=== PATIENT | male | born 1970 | race Caucasian/White ===

== ENCOUNTER 2024-11-06 15:32 | Emergency (ER) | payer OTHER, SELFPAY ==
--- NOTE | ~2024-11-06 | CT_ITS ---
CLINICAL INDICATION: Perirectal abscess or or COMPARISON: . TECHNIQUE: Multiple contiguous axial images of the abdomen and pelvis were performed following the ad ministration of with 100 mL Omnipaque-350 intravenous contrast The dose-length product (DLP) was 1699.03 mGy-cm. Automated exposure control and iterative reconstruction technique were employed. FINDINGS/OBSERVATIONS: Visualized lower thorax: The bilateral lung bases are clear. The heart is of normal size, without pericardial effusion. Liver: Within segment 2 of the liver is an irregular focus of decreased attenuation measuring 17 x 12 mm. The remainder of the liver otherwise enhances homogeneously and is not enlarged measuring 16 cm in lo ngitudinal dimension Gallbladder and biliary system: A rounded focus of increased attenuation is identified within the gallbladder measuring 41 x 35 mm, l ikely an incompletely calcified stone. No gallbladder wall thickening, pericholecystic fluid or surro unding inflammatory change is identified. Pancreas: The pancreas enhances homogeneously without ductal dilatation. Spleen: The spleen enhances homogeneously and is not enlarged measuring 8 cm in longitudinal dimension. Kidneys: Right-sided pararenal cysts are detected. The remainder of the bilateral kidneys otherwise enhance symmetrically without hydronephrosis or kristian l calculi. Adrenal glands: Unremarkable. Gastrointestinal tract: Mural thickening and edema identified within the cecum, ascending and transverse colon. Short segment mural thickening and edema within the sigmoid colon is also detected. Appendix: The air-filled appendix is of normal caliber (axial series, images 108 through 117). Vasculature: Unremarkable. Lymph nodes: No pathologically enlarged or morphologically suspicious lymph nodes within the retroperitoneum or at the root of the mesentery. Pelvic structures: The bladder is distended, and otherwise unremarkable. The prostate gland is not enlarged. Body wall and musculoskeletal: No perirectal abscess is appreciated on the cross-sectional images. Fixation hardware at the level of L5/S1 IMPRESSION: No perirectal abscess is appreciated on cross-sectional imaging for which direct visualization is rec ommended. Scattered mural thickening and edema within the colon. Irregular focus of decreased attenuation within segment 2 of the liver for which nonemergent follow-u p with MRI examination, with liver mass protocol. Reviewed, dictated and finalized at location A. [employer] IMPRESSION: No perirectal abscess is appreciated on cross-sectional imaging for which direc t visualization is recommended. Scattered mural thickening and edema within the colon. Irregular focus of decreased attenuation within segment 2 of the liver for whic h nonemergent follow-up with MRI examination, with liver mass protocol.
--- OUTSIDE RECORDS SUMMARY | 2024-11-06 15:34 | XMS_ITS | Clinical Summary ---
Author Organization [facility] Address [address] [place] [id number] Care Team Providers Care Tomato Paste Maker Name Role Phone Renaldo Erazo MD Primary Care Provider [phone] Allergies No known active allergies Medications hydrocortisone-p ramoxine (ANALPRAM-HC) 2.5-1 % rectal cream Insert into the rectum 2 (two) times a day 30 g 11/05/2024 Active Active Problems Problem Noted Date Diagnosed Date Calculus of gallbladder with out cholecystitis without obstruction 09/05/2023 Chronic lymphocytic leukemia, Crenshaw stage II 02/04 Resolved Problems Problem Noted Date Diagnosed Date Resolved Date Immunocompromised 08/03/2022 05/14/2024 Encounter for screening colonoscopy 11/10/2020 05/14/2024 Overview (11/10/2020): Added automatically from request for surgery [id number] Encounters Date Type Department Care Team Description 11/05/2024 [facility] [address] [facility] [address] [place] [address] Renaldo Erazo MD Hemorrhoids 09/11/2024 8:15 AM [facility] Lab [facility] - Lab Collection [address] [place] [id number] Chronic lymphocytic leukemia, Crenshaw stage II (HCC) 09/11/2024 8:00 AM P[facility] Office Visit [facility] [address] [place] [address] [address] [place] [address] Kelly Pierce MD Chronic lymphocytic leukemia, Crenshaw stage II (HCC) (Primary Dx); Need for influenza vaccination 09/11/2024 7:00 AM [facility] Lab [facility] [address] [phone] Chronic lymphocytic leukemia, Crenshaw stage II (HCC) from Last 3 Months Immunizations Name Administration Dates Next Due Influenza, Quadrivalent, Becca l Culture-based MDCK, Preservative Free, Antibiotic Free, Intramuscular 08/16/2023,08/10/2021,07/01/2020,07/03 Influenza, Trivalent, Cell Culture-based MDCK, Preservative Free, Antibiotic Free, Intramuscular 09/11/2024 Moderna SARS-CoV-2 Monovalen t Vaccination (12+ YRS) 04/20/2022,10/12/2021,12/25/2020,11/27 Pneumococcal Conjugate PCV 13 04/16/2019 Pneumococcal Polysaccharide PPV23 04/01/2020 Tdap 12/27/2021 ZOSTER Recombinant 07/03/2019,04/16/2019 Surgical History Surgery Date Site/Laterality Comments BACK SURGERY 10/01/2015 BACK SURGERY 10/01/2015 - 09/30/2016 Medical History Medical History Date Comments GERD (gastroesophageal reflux disease) Cancer (CMS/HCC) (HCC) CLL (chronic lymphocytic leukemia) ([facility]) 01/2019 Family History Medical History Relation Name Comments COPD Father Heart disease Mother Hypertension Mother Crohn's disease Sister Relation Name Status Comments Father Mother Alive Sister Alive Social History Tobacco Use Types Packs/Day Years Used Date Smoking Tobacco: Never Passive Smoke Exposure: Never Smokeless Tobacco: Former Chew Quit: 02/04/2015 Tobacco Cessation:Counseling Given: Not Answered Comments:chewing tobacco Alcohol Use Standard Drinks/Week Comments Yes 0 (1 standard drink = 0.6 oz pur e alcohol) AUDIT-C Answer Date Recorded Q1: How often do you have a drink containing alc ohol? 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 Not on file Not on file Obstetrics History Last Filed Vital Signs Vital Sign Reading Time Taken Comments Blood Pressure 125/76 09/11/2024 8:08 AM [facility] Pulse 74 09/11/2024 8:08 AM [facility] Temperature 36.6 C (97.8 F) 09/11/2024 8:08 AM [facility] Respiratory Rate 18 09/11/2024 8:08 AM [facility] Oxygen Saturation 96% 09/11/2024 8:08 AM [facility] Inhaled Oxygen Concentration - - Weight 139.3 kg (307 lb 3.2 oz) 09/11/2024 8:08 AM [facility] Height 188 cm (6' 2 ) 09/03/2023 8:13 AM [facility] Body Mass Index 39.44 09/03/2023 8:13 AM [facility] Plan of Treatment Health Maintenance Due Date Last Done Comments Depression Screening 1970 Hepatitis B Screening 1986 Regular Well Visit/Exam 18-64 02/24/2024, 01/11/2022, 01/11/2022 Covid-19 Vaccine (5 - 2023-2 5 season) 2024 04/20/2022, 10/12/2021, 12/25/2020, Additional history exists Pneumococcal vaccine <65 (3 of 3 - PPSV23 or PCV20) 04/01/2025 04/01/2020, 04/16/2019 Prostate Cancer Screening-PSA 05/17/2025 05/17/2023, 01/11/2022 Colon Cancer Screening-Colonoscopy 12/03/2030 12/03/2020 DTaP/Tdap/Td Vaccine (2 - Td or Tdap) 12/28/2031 12/27/2021 Zoster Vaccine Completed 07/03/2019, 04/16/2019 Colon Cancer Screening-CT Colonography Discontinued 12/03/2020 Colon Cancer Screening-DNA Stool Discontinued 12/04/19 Colon Cancer Screening-FIT Discontinued 12/03/2020 Colon Cancer Screening-Sigmoidoscopy Discontinued 12/03/2020 Hepatitis C Screening Completed 10/05/2022 , 09/07/2022, 08/03/2022, Additional history exists Influenza Vaccine Completed 09/11/2024, , 08/10/2021, Additional history exists Procedures Procedure Name Priority Date/Time Associated Diagnosis Comments EGFR Routine 09/11/2024 8:10 AM [facility] Chronic lymphocytic leukemia, Crenshaw stage II (HCC) DIFFERENTIAL AUTO Routine 09/11/2024 8:1 0 AM [facility] Chronic lymphocytic leukemia, Crenshaw stage II (HCC) CBC WITH AUTO DIFFERENTIAL Routine 09/11/2024 8:10 AM [facility] Chronic lymphocytic leukemia, Crenshaw stage II (HCC) COMPREHENSIVE METABOLIC PANEL Routine 09/11/2024 8:10 AM [facility] Chronic lymphocytic leukemia, Crenshaw stage II (HCC) LACTATE DEHYDROGENASE Routine 09/11/2024 8:10 AM [facility] Chronic lymphocytic leukemia, Crenshaw stage II (HCC) PSA SCREEN Routine 05/17/2023 9:27 AM CDT Routine general medical examination at a [facility] facility HEPATITIS C RNA, QUANTITATIVE, PCR Routine 10/05/2022 8:24 AM [facility] Chronic lymphocytic leukemia, Crenshaw stage II (HCC) COLONOSCOPY 12/03/2020 1:43 PM [facility] from Last 3 Months or Most Recently Relevant to Health Maintenance Results * eGFR (09/11/2024 8:10 AM [facility]) eGFR 89 >=60 mL/min/1. 73 m2 Comment: Interpretive Data Reference Interval Normal >/= 90 mL/min/1.73m2 Mildly decreased* 60 - 89 mL/min/1.73m2 Mildly to moderately decreased 45 - 59 mL/min/1.73m2 Moderately to severely decreased 30 - 44 mL/min/1.73m2 Severely decreased 15 - 29 mL/min/1.73m2 Kidney Failure < 15 mL/min/1.73m2 *Relative to young adult level Estimated glomerular filtration rate is determined by the 2020 CKD-EPI equation recommended by the National Kidney Foundation (A Unifying Approach to GFR Estimation: Recommendations of the NKF-ASK Task Force on Reassessing the Inclusion of Race in Diagnosing Kidney Disease, JASN 2021). The CKD-EPI equation should not be used for patients with unstable renal function and has not been validated in children and those over 70. Current interpretive data was last reviewed 2021. Blood 09/11/2024 8:10 AM [facility] 09/11/2024 8:20 AM P[facility] us Analilia Bahena DIAL PAINTER LAB BLOOD ORDERABLES Final Result [facility] [address] Department [place] [address] * Differential, auto (09/11/2024 8:10 AM [facility]) Neutrophil abs 2.5 1.5 - 6.5 K/cumm Comment:Testing performed by : [facility], [address] [place] [phone] Lymphocyte abs 1.5 0.8 - 3.3 K/cumm CERNER [facility] Comment:Testing performed by : [facility], [address] [place] [phone] Monocyte abs 0.8 0.2 - 0.8 K/cumm CERNER BJ Comment:Testing performed by : [facility], [address] [place] [phone] Eosinophil abs 0.2 0.0 - 0.5 K/cumm CERNER BJ Comment:Testing performed by : [facility], [address] [place] [phone] Basophil abs 0.0 0.0 - 0.1 K/cumm CERNER BJ Comment:Testing performed by : [facility], [address] [place] [phone] Neutrophil pct 48.8 % CERNER BJ Comment: Interpretive Data Percent cell count reference ranges are not reported, since discordance with absolute values may lead to misinterpretation of CBC data. Current Interpretive Data was last revised on 2018. Testing performed by: [facility], [address] [place] [phone] Lymphocyte pct 30.7 % CERNER BJ Comment: Interpretive Data Percent cell count reference ranges are not reported, since discordance with absolute values may lead to misinterpretation of CBC data. Current Interpretive Data was last revised on 2018. Testing performed by: [facility], [address] [place] [phone] Monocyte pct 15.0 % ARABELLA PARTIDA Comment: Interpretive Data Percent cell count reference ranges are not reported, since discordance with absolute values may lead to misinterpretation of CBC data. Current Interpretive Data was last revised on 2018. Testing performed by: [facility], [address] [place] [phone] Eosinophil pct 4.9 % ARABELLA PARTIDA Comment: Interpretive Data Percent cell count reference ranges are not reported, since discordance with absolute values may lead to misinterpretation of CBC data. Current Interpretive Data was last revised on 2018. Testing performed by: [facility], [address] [place] [phone] Basophil pct 0.6 % ARABELLA PARTIDA Comment: Interpretive Data Percent cell count reference ranges are not reported, since discordance with absolute values may lead to misinterpretation of CBC data. Current Interpretive Data was last revised on 2018. Testing performed by: [facility], [address] [place] [phone] Blood 09/11/2024 8:10 AM [facility] 09/11/2024 8:16 AM [facility] Analilia Bahena DIAL PAINTER LAB BLOOD ORDERABLES Final Result ARABELLA PARTIDA [address] Department [place] [address] * CBC with auto differential (09/11/2024 8:10 AM [facility]) WBC 5.0 3.8 - 9.9 K/cumm Comment:Testing performed by : [facility], [address] [place] [phone] Hgb 14.4 13.0 - 17.5 g/dL ARABELLA PARTIDA Comment:Testing performed by : [facility], [address] [place], [place] [phone] Hct 44.4 38.9 - 50.3 % CERNER BJ Comment:Testing performed by : [facility], [address] [place], [place] [phone] Plt 161 150 - 400 K/cumm CERNER BJ Comment:Testing performed by : [facility], [address] [place], [place] [phone] MPV 8.9 6.8 - 10.4 fL CERNER BJ Comment:Testing performed by : [facility], [address] [place], [place] [phone] RBC 4.60 4.30 - 5.80 M/cumm CERNER BJ Comment:Testing performed by : [facility], [address] [place], [place] [phone] MCV 96.4 81.3 - 96.4 fL CERNER BJ Comment:Testing performed by : [facility], [address] [place], [place] [phone] MCH 31.2 27.1 - 33.3 pg CERNER BJ Comment:Testing performed by : [facility], [address] [place], [place] [phone] MCHC 32.4 32.3 - 35.7 g/dL CERNER BJ Comment:Testing performed by : [facility], [address] [place], [place] [phone] RDW CV 14.7 11.1 - 14.9 % CERNER BJ Comment:Testing performed by : [facility], [address] [place], [place] [phone] NRBC abs 0.00 0.00 - 0.01 K/cumm CERNER BJ Comment:Testing performed by : [facility], [address] [place], [place] [phone] Blood 09/11/2024 8:10 AM [facility] 09/11/2024 8:16 AM [facility] us Analilia Bahena DIAL PAINTER LAB BLOOD ORDERABLES Final Result Performing Organization Address City/[facility]/ZIP Co de Phone Number [facility] Cindy [facility] [place] [address] * Lactate dehydrogenase (LD) (09/11/2024 8:10 AM P[facility]) [facility] Lactate dehydrogenase (LDH) 166 100 - 250 Units/L Blood 09/11/2024 8:10 AM [facility] 09/11/2024 8:20 AM [facility] Analiliaalessia Yepez Bahena DIAL PAINTER LAB BLOOD ORDERABLES Final Result Performing Organization Address [facility] de Phone Number [facility] Department [place] [address] * Comprehensive metabolic panel (09/11/2024 8:10 AM P[facility]) [facility] Sodium 141 135 - 145 mmol/L Potassium, pl 4.4 3.3 - 4.9 mmol/L [facility] Chloride 108 97 - 110 mmol/L [facility] CO2 30 22 - 32 mmol/L [facility] Anion gap 3 2 - 15 mmol/L [facility] BUN 15 6 - 25 mg/dL [facility] Creatinine 0.99 0.80 - 1.30 mg/dL [facility] Glucose 106 70 - 199 mg/dL [facility] Comment: Interpretive Data Fasting glucose >/= 126 mg/dl is diagnostic for diabetes. Fasting is defined as no caloric intake for at least 8 hours. Fasting glucose between 100 mg/dl to 125 mg/dl is diagnostic of prediabetes. In a patient with classic symptoms of hyperglycemia or hyperglycemic crisis, a random glucose >/= 200 mg/dl is diagnostic for diabetes. In the absence of unequivocal hyperglycemia, results should be confirmed by repeat testing. The classification and Diagnosis of Diabetes Diabetes Care 202; 46: S19-S40. Current interpretive data was last revised 2022. Calcium 9.2 8.5 - 10.3 mg/dL [facility] Bilirubin, total 0.6 0.1 - 1.2 mg/dL [facility] Protein, pl 6.8 6.5 - 8.5 g/dL [facility] Albumin 4.2 3.5 - 5.0 g/dL [facility] Alk phos 98 40 - 130 Units/L [facility] ALT 25 7 - 55 Units/L [facility] AST 22 10 - 50 Units/L [facility] Blood 09/11/2024 8:10 AM [facility] 09/11/2024 8:20 AM [facility] Analilia Bahena NP LAB BLOOD ORDERABLES Final Result Performing Organization Address [facility] Co de Phone Number [facility] [place] [address] * PSA screen (05/17/2023 9:27 AM CDT) PSA-Total 0.53 <=3.90 ng/mL [facility] Comment: Interpretive Data AGE SEX REFERENCE INTERVAL 0 minutes-150 years Female None 0 minutes-49 years Male None 50-59 years Male 0-3.90 60-69 years Male 0-5.40 70-79 years Male 0-6.20 80-150 years Male 0-6.20 The Amandeep PSA Total assay procedure was used. Results from different manufacturers or methods may not be comparable. Serial testing should be performed using the same method. Current interpretive data last revised 22. Blood 05/17/2023 9:27 AM CDT 05/17/2023 10:11 AM CDT Renaldo Erazo MD LAB BLOOD ORDERABLES Final Re sult Performing Organization Address City/[facility] Co de Phone Number [facility] [place] [address] * Hepatitis C (HCV) RNA PCR, quantitative (10/05/2022 8:24 AM [facility]) HCV RNA result Not Detected [facility] Comment: The quantifiable range of this assay is 15 IU/mL to 100,000,000 IU/mL (1.18 log IU/mL to 8.00 log IU/mL). Testing was performed by the HELEN 6800 HCV Test ([employer] Testing performed at [facility] Current Interpretive Data was last revised on 2021 Blood 10/05/2022 8:24 AM [facility] 10/05/2022 9:15 AM [facility] us Lynda Slade NP LAB MICROBIOLOGY - GENERAL ORDERABLES Final Result ARABELLA [facility] [address] Department [place] [address] * COLONOSCOPY (12/03/2020 1:43 PM [facility]) Anatomical Region Laterality Modality Other Narrative Procedure Note Laura Sam MD - 12/03/2020 1:43 PM CST [facility] Patient Name: Layo Ponce Procedure Date: 12/03/2020 1:43 PM Date of : 1970 Admit Type: Outpatient Age: 50 Gender: Male Attending MD: Laura Sam M.D. Room: [facility] ENDOSCOPY ROOM 8 Note Status: Finalized Procedure: Colonoscopy Indications: Screening for colorectal malignant neoplasm Referring MD: Renaldo Erazo M.D. Providers: Laura Sam M.D. Medicines: Monitored Anesthesia Care Complications: No immediate complications. Estimated Blood Loss: Estimated blood loss was minimal. Procedure: Pre-Anesthesia Assessment: - Immediately prior to administration ofmedications, the patient was re-assessed for adequacy to receive sedatives. - The risks and benefits of the procedure and the sedation options and risks were discussed with the patient. All questions were answered and informed consent was obtained. The benefits, risks and alternatives of theprocedure and sedation were discussed and informed consentwas obtained. All questions were answered. Please referto the signed informed consent document in the medical record. The scope was passed under direct vision.The [id number] endoscope was introduced through the anus and advanced to the terminal ileum. The colonoscopy was performed without difficulty. The patient tolerated the procedure well. The bowel preparation used was GoLYTELY via split dose instruction. Bowel prep was administered using asplit dose. The quality of the bowel preparation was excellent. Findings: A 3 mm polyp was found in the rectum. The polyp was sessile. Thepolyp was removed with a jumbo cold forceps. Resection and retrieval were complete. Internal hemorrhoids were found during retroflexion. Impression: - One 3 mm polyp in the rectum, removed with ajumbo cold forceps. Resected and retrieved. - Internal hemorrhoids. Recommendation: - Await pathology results. - A polyp or polyps were removed during your colonoscopy today. After the pathology result ofthe polyp(s) is reviewed, the doctor who performedyour colonoscopy will recommend follow-up colonoscopy to you based on current guidelines by gastroenterology societies: - If only small hyperplastic polyps from the rectumor sigmoid were removed, repeat the colonoscopy in 10 years. - If 1 or 2 polyps less than 1 cm in size are adenomas, repeat the colonoscopy in 5 years. - If 3 or more polyps are adenomas, repeat the colonoscopy in 3 years. - If there are 10 or more adenomas, repeat the colonoscopy in 1 year. - If any polyp is 10 mm or greater in size, has villous histology or high grade dysplasia,repeat the colonoscopy in 3 years. - If a polyp greater than 2 cm was removed with a piecemeal technique, repeat the colonoscopy in 6 months to be certain that there is no residualpolyp. - Sessile serrated polyps are treated like adenomas for surveillance purposes. Electronically signed by Laura Sam MD Laura Sam M.D. 12/03/2020 2:40:42 PM . Number of Addenda: 0 Note Initiated On: 12/03/2020 1:43 PM Recognized by the [employer] for promoting quality in endoscopy Laura Sam MD ENDOSCOPY PROCEDURE S Final Result from Last 3 Months or Most Recently Relevant to Health Maintenance Insurance [facility] [place] [address] [facility] [employer] CHOICE PLUS CHOICE PLUS [facility] [employer]ENSATION GENERIC [address] [place] [address] Advance Directives For more information, please contact: [phone] * Full Code (Latest Code Status on File) Date Activated Date Inactivated Comments 12/03/2020 1:38 PM 12/03/2020 7:03 PM Care Teams Tomato Paste Maker Relationship Specialty Start Date End Date Renaldo Erazo MD [address] [address] PCP - General Internal Medicine 01/21/19
--- OUTSIDE RECORDS SUMMARY | 2024-11-06 15:34 | XMS_ITS | Patient Health Summary ---
Author Organization [facility] [employer] Address [address] [facility] [place] [address] Care Team Providers Care Bow Repairer Custom Name Role Phone Renaldo Erazo MD Primary Care Provider [phone] Note from [facility],non-owned Affiliates and Associated Physician Practices is amultiple site organization consisting of ambulatory clinics and hospital sitesin [place], [place], [place] and [place]. This disclosure is being madepursuant to the Care Everywhere program and may not contain all information available regarding this patient. Last updated 18.[facility] [employer] Allergies No known active allergies Medications Be aware that medications may not be up to date on this document. Always verify current medications with the patient. No known medications Social History Tobacco Use Types Packs/Day Years Used Date Smoking Tobacco: Never Smokeless Tobacco: Never Sex and Gender Information Value Date Recorded Sex Assigned at Not on file Gender Identity Not on file Sexual Orientation Not on file Last Filed Vital Signs Vital Sign Reading Time Taken Comments Blood Pressure 110/68 03/02/2019 2:34 PM CDT Pulse 92 03/02/2019 2:34 PM CDT Temperature 37.2 C (98.9 F) 03/02/2019 2:34 PM CDT Respiratory Rate 15 03/02/2019 2:34 PM CDT Oxygen Saturation 96% 03/02/2019 2:34 PM CDT Inhaled Oxygen Concentration - - Weight 128.4 kg (283 lb) 03/02/2019 2:34 PM CDT Height 188 cm (6' 2 ) 03/02/2019 2:34 PM CDT Body Mass Index 36.34 03/02/2019 2:34 PM CDT Care Teams Bow Repairer Custom Relationship Specialty Start Date End Date Renaldo Erazo MD PCP - General Internal Medicine 01/19/17
--- OUTSIDE RECORDS SUMMARY | 2024-11-06 15:34 | XMS_ITS ---
Author Organization [facility] Address Unknown Encounters Encounter Performer Performer Role Encounter Diagnoses Location Date Discharge - Discharged to home or self care - Home - Private home/apt. with no home health services [facility] 10/05/2015 06:00 pm EST - 10/06/2015 12:05 pm EST Social History
--- OUTSIDE RECORDS SUMMARY | 2024-11-06 15:34 | XMS_ITS | Referral Summary ---
Author Organization [facility] [employer] Address [address] [place] [address] Care Team Providers Care Industrial Security Analyst Name Role Phone Renaldo Erazo MD Primary Care Provider [phone] [facility] [employer],non-owned Affiliates and Associated Physician Practices is amultiple site organization consisting of ambulatory clinics and hospital sitesin [place], [place], [place] and [place]. This disclosure is being madepursuant to the Care Everywhere program and may not contain all information available regarding this patient. Last updated 18.[facility] [employer] Allergies No known active allergies Medications Be [...] Mass Index 36.34 03/02/2019 2:34 PM CDT Plan of Treatment Not on file Care Teams Industrial Security Analyst Relationship Specialty Start Date End Date Renaldo Erazo MD PCP - General Internal Medicine 01/19/17
--- OUTSIDE RECORDS SUMMARY | 2024-11-06 15:34 | XMS_ITS | Encounter Summary ---
Author Organization [facility] Address [address] [place] [address] Care Team Providers Care Stapling Machine Operator Name Role Phone Renaldo Erazo MD Primary Care Provider [phone] Reason for Visit * Reason Onset Date Comments Hemorrhoids 11/05/2024 Encounter Details Date Type Department Care Team (Late st Contact Info) Description 11/05/2024 [facility] [address] [facility] [address] [place] [id number] Renaldo Erazo MD [address] [facility] [address] [place] [address] Hemorrhoids Social History Tobacco Use Types Packs/Day Years Used Date Smoking Tobacco: Never Passive Smoke Exposure: Never Smokeless Tobacco: Former Chew Quit: 02/04/2015 Comments:chewing tobacco Alcohol Use Standard Drinks/Week Comments [...] on file Legal Sex Male 1:27 AM NURSE EMERGENCY ROOM Gender Identity Not on file Sexual Orientation Not on file 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 E EMERGENCY ROOM * Telephone Encounter - Renaldo Erazo MD - 11/05/2024 10:19 AM CST Analpram tends to be very soothing. ALso using TUCKS flushable wipes can help Ibuprofen can be helpful for inflammation E EMERGENCY ROOM * Telephone Encounter - Marissa Anguiano - 11/05/2024 9:44 AM NURSE EMERGENCY ROOM Pt notified and voiced understanding. Asking what you would recommend for taking for the pain? E EMERGENCY ROOM * Telephone Encounter - Renaldo Erazo MD - 11/05/2024 9:23 AM CST Sure Analpram apply bid #[id number] E EMERGENCY ROOM * Telephone Encounter - Marissa Anguiano - 11/05/2024 9:12 AM NURSE EMERGENCY ROOM Pt calling in c/o problems with hemorrhoids. Pt has had a history of hemorrhoids in the past. Said that this flare up started Sunday morning after having to push with BM. Pt can feel a bump. Very tender. Has bled when having BM but only when wiping. Said it is a mix of bright red and dark red. He is trying preparation H and it isn't helping at all the only thing that is helping is sitting inthe bathtub. He made an appointment for next week as he hasn't been seen since 01/2023. But asking if there is anything that can be done until then. E EMERGENCY ROOM documented in this encounter Plan of Treatment Not on file documented as of this encounter Visit Diagnoses Not on filedocumented in this encounter Care Teams Stapling Machine Operator Relationship Specialty Start Date End Date Renaldo Erazo MD [address] [address] PCP - General Internal Medicine 01/21/19 documented as of this encounter
--- OUTSIDE RECORDS SUMMARY | 2024-11-06 15:34 | XMS_ITS | Clinical Summary ---
Author Organization [facility] [employer] Address [address] [place] [address] Care Team Providers Care Therapeutic Specialist Name Role Phone Renaldo Erazo MD Primary Care Provider [phone] Source Comments [facility] [employer],non-owned Affiliates and Associated Physician Practices is amultiple site organization consisting of ambulatory clinics and hospital sitesin [place], [place], [place] and [place]. This disclosure is being madepursuant to the Care Everywhere program and may not contain all information available regarding this patient. Last updated 18.[facility] [employer] Allergies No known active allergies Medications Be [...] 03/02/2019 2:34 PM CDT Plan of Treatment Health Maintenance Due Date Last Done Comments COLOGUARD (AGES 45-75) - COL ON CA SCREENING 1970 COLON MONITORING 1970 COLONOSCOPY - COLON CA SCREENING 1968 CT COLONOGRAPHY - COLON CA SCREENING 1970 Colorectal Cancer Screening 1970 FIT - COLON CA SCREENING 1968 FLEX SIG - COLON CA SCREENING 1968 LIPID TESTING 1968 HIV SCREENING 1983 HEPATITIS C SCREENING 08/18/1986 DTAP/TDAP/TD VACCINES (1 - Tdap) 1987 HEPATITIS B VACCINE (1 of 3 - 19+ 3-dose series) 1987 PNEUMOCOCCAL VACCINE 50+ (1 of 1 - PCV) 2018 ZOSTER VACCINE (1 of 2) 2018 SCREENING FOR DIABETES 03/02/2019 COVID-19 VACCINE (1 - 2023-2 5 season) 2024 INFLUENZA VACCINE (#1) 2024 DEPRESSION SCREENING 10/01/2024 HIB VACCINE Aged Out No longer eligi ble based on patient's age to complete this topic HPV VACCINE Aged Out No longer eligi ble based on patient's age to complete this topic MENINGOCOCCAL (Group B) VACCINE Aged Out No longer eligible based on patient's age to complete this topic MENINGOCOCCAL VACCINE Aged Out No alondra israel eligible based on patient's age to complete this topic PNEUMOCOCCAL VACCINE Aged Out No long er eligible based on patient's age to complete this topic Care Teams Therapeutic Specialist Relationship Specialty Start Date End Date Renaldo Erazo MD PCP - General Internal Medicine 01/19/17
--- OUTSIDE RECORDS SUMMARY | 2024-11-06 15:34 | XMS_ITS ---
Author Organization [facility] Address [address] [place] [phone] Care Team Providers Care Historiographer Name Role Phone Renaldo Erazo MD Primary Care Provider [phone] Active Problems Problem Noted Date Diagnosed Date Calculus of gallbladder with out cholecystitis without obstruction 09/05/2023 Chronic lymphocytic leukemia, Crenshaw stage II 02/04 Current Oncology Plans No current plan information found. Past Plans Line Care Plan Name Start Date Discontinue Date Treatment Medications Discontinue Reason Plan Provider IV MAINTENANCE THERAPY PLAN 05/11/2022 05/14/2024 No medications scheduled. Change in Level of Care Kelly Pierce MD Oncology Chemotherapy Treatment Plan Name Start Date Discontinue Date Treatment Medications Discontinue Reason Plan Provider Cycles oBINutuzumab / Venetoclax - CLL 2 08/12/2023 oBINutuzumab (GAZYVA) IVPB 1,000 mg in 290 mLoBINutuzumab (GAZYVA) IVPB 100 mg in 100 mLoBINutuzumab (GAZYVA) IVPB 900 mg in 250 mLvenetoclax (VENCLEXTA) 10 mg-50 mg- 100 mg Therapy Complete Lynda Slade NP 13 of 14 cycles started Radiation Treatments * No radiation treatments are documented for this patient in [facility]. Treatments may have been administered in another system. Lifetime Dose Tracking * Chemical Lifetime Dose Automatic Entry Manual Entr y DLP 15,114 mGycm 15,114 mGycm 0 mGycm Resolved Problems Problem Noted Date Diagnosed Date Resolved Date Immunocompromised 08/03/2022 05/14/2024 Encounter for screening colonoscopy 11/10/2020 05/14/2024 Overview (11/10/2020): Added automatically from request for surgery [id number]
--- OUTSIDE RECORDS SUMMARY | 2024-11-06 15:34 | XMS_ITS | Referral Summary ---
Author Organization [facility] Address [address] [place] [phone] Care Team Providers Care Lure Maker Name Role Phone Renaldo Erazo MD Primary Care Provider [phone] Encounters Date Type Department Care Team Description 11/05/2024 [facility] [address] [facility] [address] [place] [address] Renaldo Erazo MD Hemorrhoids 09/11/2024 8:15 AM STUDENT UNION CONSULTANT Lab [facility] [address] [place] [id number] Chronic lymphocytic leukemia, Crenshaw stage II (HCC) 09/11/2024 8:00 AM STUDENT UNION CONSULTANT Office Visit [facility] Oncology [address] [place] [phone] Kelly Pierce MD Chronic lymphocytic leukemia, Crenshaw stage II (HCC) (Primary Dx); Need for influenza vaccination 09/11/2024 7:00 AM STUDENT UNION CONSULTANT Lab [facility] Oncology Lab [address] [place] [phone] Chronic lymphocytic leukemia, Crenshaw stage II (HCC) from Last 3 Months Allergies No known active allergies Medications hydrocortisone-p [...] (11/10/2020): Added automatically from request for surgery [id number] Immunizations Name Administration Dates Next Due Influenza, Quadrivalent, Becca l Culture-based MDCK, Preservative Free, Antibiotic Free, Intramuscular 08/16/2023,08/10/2021,07/01/2020,07/03 Influenza, Trivalent, Cell Culture-based MDCK, Preservative Free, Antibiotic Free, Intramuscular 09/11/2024 Moderna SARS-CoV-2 Monovalen t Vaccination (12+ YRS) 04/20/2022,10/12/2021,12/25/2020,11/27 Pneumococcal Conjugate PCV 13 04/16/2019 Pneumococcal Polysaccharide PPV23 04/01/2020 Tdap 12/27/2021 ZOSTER Recombinant 07/03/2019,04/16/2019 Social History Tobacco Use Types Packs/Day Years [...] on file Legal Sex Male 1:27 AM STUDENT UNION CONSULTANT Gender Identity Not on file Sexual Orientation Not on file 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 Not on file Not on file Last Filed Vital Signs Vital Sign Reading Time Taken Comments Blood Pressure 125/76 09/11/2024 8:08 AM STUDENT UNION CONSULTANT Pulse 74 09/11/2024 8:08 AM STUDENT UNION CONSULTANT Temperature 36.6 C (97.8 F) 09/11/2024 8:08 AM STUDENT UNION CONSULTANT Respiratory Rate 18 09/11/2024 8:08 AM STUDENT UNION CONSULTANT Oxygen Saturation 96% 09/11/2024 8:08 AM STUDENT UNION CONSULTANT Inhaled Oxygen Concentration - - Weight 139.3 kg (307 lb 3.2 oz) 09/11/2024 8:08 AM STUDENT UNION CONSULTANT Height 188 cm (6' 2 ) 09/03/2023 8:13 AM STUDENT UNION CONSULTANT Body Mass Index 39.44 09/03/2023 8:13 AM STUDENT UNION CONSULTANT Plan of Treatment Not on file Procedures Procedure Name Priority Date/Time Associated Diagnosis Comments EGFR Routine 09/11/2024 8:10 AM STUDENT UNION CONSULTANT Chronic lymphocytic leukemia, Crenshaw stage II (HCC) DIFFERENTIAL AUTO Routine 09/11/2024 8:1 0 AM STUDENT UNION CONSULTANT Chronic lymphocytic leukemia, Crenshaw stage II (HCC) CBC WITH AUTO DIFFERENTIAL Routine 09/11/2024 8:10 AM STUDENT UNION CONSULTANT Chronic lymphocytic leukemia, Crenshaw stage II (HCC) COMPREHENSIVE METABOLIC PANEL Routine 09/11/2024 8:10 AM STUDENT UNION CONSULTANT Chronic lymphocytic leukemia, Crenshaw stage II (HCC) LACTATE DEHYDROGENASE Routine 09/11/2024 8:10 AM STUDENT UNION CONSULTANT Chronic lymphocytic leukemia, Crenshaw stage II (HCC) PSA SCREEN Routine 05/17/2023 9:27 AM CDT Routine [facility] at [facility] HEPATITIS C RNA, QUANTITATIVE, PCR Routine 10/05/2022 8:24 AM STUDENT UNION CONSULTANT Chronic lymphocytic leukemia, Crenshaw stage II (HCC) COLONOSCOPY 12/03/2020 1:43 PM STUDENT UNION CONSULTANT from Last 3 Months or Most Recently Relevant to Health Maintenance Results * eGFR (09/11/2024 8:10 AM STUDENT UNION CONSULTANT) eGFR 89 >=60 mL/min/1. 73 m2 Comment: [...] of Race in Diagnosing Kidney Disease, JASN 2020). The CKD-EPI equation should not be used for patients with unstable renal function and has not been validated in children and those over 70. Current interpretive data was last reviewed 2021. Blood 09/11/2024 8:10 AM STUDENT UNION CONSULTANT 09/11/2024 8:20 AM STUDENT UNION CONSULTANT us Analilia Bahena INSTRUCTIONAL MANAGER LAB BLOOD ORDERABLES Final Result [facility] Department [place] [address] * Differential, auto (09/11/2024 8:10 AM STUDENT UNION CONSULTANT) Neutrophil abs 2.5 1.5 - 6.5 K/cumm Comment:Testing performed by : [facility], [address] [place] [phone] Lymphocyte abs 1.5 0.8 - 3.3 K/cumm [facility] Comment:Testing performed by : [facility], [address] [place] [phone] Monocyte abs 0.8 0.2 - 0.8 K/cumm [facility] Comment:Testing performed by : [facility], [address] [place] [phone] Eosinophil abs 0.2 0.0 - 0.5 K/cumm [facility] Comment:Testing performed by : [facility], [address] [place] [phone] Basophil abs 0.0 0.0 - 0.1 K/cumm [facility] Comment:Testing performed by : [facility], [address] [place] [phone] Neutrophil pct 48.8 % [facility] Comment: Interpretive Data Percent cell count reference ranges are not reported, since discordance with absolute values may lead to misinterpretation of CBC data. Current Interpretive Data was last revised on 2018. Testing performed by: [facility], [address] [place] [phone] Lymphocyte pct 30.7 % [facility] Comment: Interpretive Data Percent cell count reference ranges are not reported, since discordance with absolute values may lead to misinterpretation of CBC data. Current Interpretive Data was last revised on 2018. Testing performed by: [facility], [address] [place] [phone] Monocyte pct 15.0 % [facility] Comment: Interpretive Data Percent cell count reference ranges are not reported, since discordance with absolute values may lead to misinterpretation of CBC data. Current Interpretive Data was last revised on 2018. Testing performed by: [facility], [address] [place] [phone] Eosinophil pct 4.9 % [facility] Comment: Interpretive Data Percent cell count reference ranges are not reported, since discordance with absolute values may lead to misinterpretation of CBC data. Current Interpretive Data was last revised on 2018. Testing performed by: [facility], [address] [place] [phone] Basophil pct 0.6 % [facility] Comment: Interpretive Data Percent cell count reference ranges are not reported, since discordance with absolute values may lead to misinterpretation of CBC data. Current Interpretive Data was last revised on 2018. Testing performed by: [facility], [address] [place] [phone] Blood 09/11/2024 8:10 AM STUDENT UNION CONSULTANT 09/11/2024 8:16 AM STUDENT UNION CONSULTANT us Analilia Bahena INSTRUCTIONAL MANAGER LAB BLOOD ORDERABLES Final Result [facility] Department [place] [address] * CBC with auto differential (09/11/2024 8:10 AM STUDENT UNION CONSULTANT) Pathologist [facility] WBC 5.0 3.8 - 9.9 K/cumm Comment:Testing performed by : [facility], [address] [place] [address] Hgb 14.4 13.0 - 17.5 g/dL [facility] Comment:Testing performed by : [facility], [address] [place] [address] Hct 44.4 38.9 - 50.3 % [facility] Comment:Testing performed by : [facility], [address] [place] [address] Plt 161 150 - 400 K/cumm [facility] Comment:Testing performed by : [facility], [address] [place] [address] MPV 8.9 6.8 - 10.4 fL [facility] Comment:Testing performed by : [facility], [address] [place] [address] RBC 4.60 4.30 - 5.80 M/cumm [facility] Comment:Testing performed by : [facility], [address] [place] [address] MCV 96.4 81.3 - 96.4 fL [facility] Comment:Testing performed by : [facility], [address] [place] [address] MCH 31.2 27.1 - 33.3 pg [facility] Comment:Testing performed by : [facility], [address] [place] [address] MCHC 32.4 32.3 - 35.7 g/dL [facility] Comment:Testing performed by : [facility], [address] [place] [address] RDW CV 14.7 11.1 - 14.9 % [facility] Comment:Testing performed by : [facility], [address] [place] [address] NRBC abs 0.00 0.00 - 0.01 K/cumm [facility] Comment:Testing performed by : [facility], [address] [place] [phone] Blood 09/11/2024 8:10 AM STUDENT UNION CONSULTANT 09/11/2024 8:16 AM STUDENT UNION CONSULTANT Analilia Bahena INSTRUCTIONAL MANAGER LAB BLOOD ORDERABLES Final Result Performing Organization Address [facility] Co de Phone Number [facility] Department [place] [employer] [address] * Lactate dehydrogenase (LD) (09/11/2024 8:10 AM STUDENT UNION CONSULTANT) Pathologist [facility] Lactate dehydrogenase (LDH) 166 100 - 250 Units/L Blood 09/11/2024 8:10 AM STUDENT UNION CONSULTANT 09/11/2024 8:20 AM STUDENT UNION CONSULTANT Analilia Bahena INSTRUCTIONAL MANAGER LAB BLOOD ORDERABLES Final Result Performing Organization Address [facility] de Phone Number [facility] [place] [address] * Comprehensive metabolic panel (09/11/2024 8:10 AM STUDENT UNION CONSULTANT) Pathologist [facility] Sodium 141 135 - 145 mmol/L Potassium, pl 4.4 3.3 - 4.9 mmol/L [facility] Chloride 108 97 - 110 mmol/L [facility] CO2 30 22 - 32 mmol/L [facility] Anion gap 3 2 - 15 mmol/L [facility] BUN 15 6 - 25 mg/dL [facility] Creatinine 0.99 0.80 - 1.30 mg/dL [facility] Glucose 106 70 - 199 mg/dL [facility] Comment: Interpretive Data Fasting glucose >/= 126 [...] 2022. Calcium 9.2 8.5 - 10.3 mg/dL [facility] Bilirubin, total 0.6 0.1 - 1.2 mg/dL [facility] Protein, pl 6.8 6.5 - 8.5 g/dL [facility] Albumin 4.2 3.5 - 5.0 g/dL [facility] Alk phos 98 40 - 130 Units/L [facility] ALT 25 7 - 55 Units/L [facility] AST 22 10 - 50 Units/L [facility] Blood 09/11/2024 8:10 AM STUDENT UNION CONSULTANT 09/11/2024 8:20 AM STUDENT UNION CONSULTANT Analilia Bahena NP LAB BLOOD ORDERABLES Final Result Performing Organization Address [facility] Co de Phone Number [facility] Department [place] [address] * PSA screen (05/17/2023 9:27 AM CDT) PSA-Total 0.53 <=3.90 ng/mL [facility] Comment: Interpretive Data AGE SEX REFERENCE INTERVAL [...] 9:27 AM CDT 05/17/2023 10:11 AM CDT us Renaldo Erazo MD LAB BLOOD ORDERABLES Final Re sult Performing Organization Address [facility] Co de Phone Number [facility] [place] [address] * Hepatitis C (HCV) RNA PCR, quantitative (10/05/2022 8:24 AM STUDENT UNION CONSULTANT) [facility] [address] HCV RNA result Not Detected [facility] Comment: The quantifiable range of this assay is 15 IU/mL to 100,000,000 IU/mL (1.18 log IU/mL to 8.00 log IU/mL). Testing was performed by the [employer]00 HCV Test ([employer] Testing performed at [facility] Current Interpretive Data was last revised on 2021 Blood 10/05/2022 8:24 AM STUDENT UNION CONSULTANT 10/05/2022 9:15 AM STUDENT UNION CONSULTANT us Lynda Slade NP LAB MICROBIOLOGY - GENERAL ORDERABLES Final Result [facility] [place] [address] * COLONOSCOPY (12/03/2020 1:43 PM STUDENT UNION CONSULTANT) Anatomical Region Laterality Modality Other Narrative Procedure Note Laura Sam MD - 12/03/2020 1:43 PM CST [facility] Patient Name: Layo Ponce Procedure Date: 12/03/2020 1:43 PM Date of : 1970 Admit Type: Outpatient Age: 50 Gender: Male Attending MD: Laura Sam M.D. Room: [facility] ENDOSCOPY RO[facility] 8 Note Status: Finalized Procedure: [...] The scope was passed under direct vision.The [id number] endoscope was introduced through the anus [...] On: 12/03/2020 1:43 PM Recognized by the [employer] for promoting quality in endoscopy Laura Sam MD ENDOSCOPY PROCEDURE S Final Result from Last 3 Months or Most Recently Relevant to Health Maintenance Insurance [facility] [place] [address] CHOICE PLUS CHOICE PLUS CHOICE PLUS CHOICE PLUS WORKERS COMPENSATION GENERIC [id number] [place] [address] Advance Directives For more information, please contact: [phone] * Full Code (Latest Code Status on File) Date Activated Date Inactivated Comments 12/03/2020 1:38 PM 12/03/2020 7:03 PM Care Teams Lure Maker Relationship Specialty Start Date End Date Renaldo Erazo MD [address] [facility] [address] [place] [address] PCP - General Internal Medicine 01/21/19
[2024-11-06 15:36] VITALS: BP 121/60; PULSE 107; RESP 20; TEMP 36.4; O2SAT 99
[2024-11-06 17:15] VITALS: BP 156/79; PULSE 130; RESP 20; O2SAT 100
[2024-11-06 18:05] LABS: Eosinophils Percent Auto 2.4 % (0-4.4); Hemoglobin 11.7 g/dL (14.0-18.0); Immature Granulocyte Absolute 0.01 K/mm3 (0.00-0.031); Immature Granulocyte Percent A 1.2 % (0-0.5); Immature Platelet Fraction Pct 2.4 % (0.9-11.2); Lymphocytes Absolute Auto 0.67 K/mm3 (0.9-3.2); Lymphocytes Percent Auto 81.7 % (18.3-44.2); Mean Corpuscular HGB Conc 33.4 g/dl (32-36); Mean Corpuscular Hemoglobin 31.6 pg (26-34); Mean Corpuscular Volume 94.6 fl (80-100); Mean Platelet Volume 9.3 fl (7.4-10.4); Monocytes Percent Auto 3.7 % (2.6-8.5); Neutrophils Absolute Auto 0.1 K/mm3 (1.3-6.7); Platelet Count Result 31 k/mm3 (150-375); Red Cell Distribution Width 13.2 % (11.5-14.5)
[2024-11-06 18:10] LABS: Estimated CRCL calculation 98 ml/min; Estimated Glomerular Filt Rate > 60
--- OUTSIDE RECORDS SUMMARY | 2024-11-06 18:19 | XMS_ITS | Referral Summary ---
Author Organization [facility] [employer] Address [address] [place] [address] Care Team Providers Care Film Vault Supervisor Name Role Phone Renaldo Erazo MD Primary Care Provider [phone] Source Comments [facility],non-owned Affiliates and Associated Physician Practices is amultiple site organization consisting of ambulatory clinics and hospital sitesin [place], [place], [place] and [place]. This disclosure is being madepursuant to the Care Everywhere program and may not contain all information available regarding this patient. Last updated 18.[facility] Allergies No known active allergies Medications Be [...] of Treatment Not on file Care Teams Film Vault Supervisor Relationship Specialty Start Date End Date Renaldo Erazo MD PCP - General Internal Medicine 01/19/17
--- OUTSIDE RECORDS SUMMARY | 2024-11-06 18:19 | XMS_ITS | Clinical Summary ---
Author Organization [facility] Address [address] [place] [place] [address] Care Team Providers Care Mailing Machine Assistant Name Role Phone Renaldo Erazo MD Primary Care Provider [phone] Source Comments [facility],non-owned Affiliates and Associated Physician Practices is amultiple site organization consisting of ambulatory clinics and hospital sitesin [place]. This disclosure is being madepursuant to the Care Everywhere program and may not contain all information available regarding this patient. Last updated 18.[facility] Allergies No known active allergies Medications Be [...] age to complete this topic Care Teams Mailing Machine Assistant Relationship Specialty Start Date End Date Renaldo Erazo MD PCP - General Internal Medicine 01/19/17
--- OUTSIDE RECORDS SUMMARY | 2024-11-06 18:19 | XMS_ITS | Clinical Summary ---
Author Organization [facility] Address [address] [place] [id number] Care Team Providers Care Analytical Strategist Name Role Phone Renaldo Erazo MD Primary Care Provider [phone] Allergies No known active allergies Medications hydrocortisone-p [...] (11/10/2020): Added automatically from request for surgery [id number] Encounters Date Type Department Care Team Description 11/05/2024 [facility] [address] [place] [address] Renaldo Erazo MD Hemorrhoids 09/11/2024 8:15 AM OYSTER BUYER Lab [facility] [place] - Lab Collection [address] [place] [id number] Chronic lymphocytic leukemia, Crenshaw stage II (HCC) 09/11/2024 8:00 AM OYSTER BUYER Office Visit [facility] [address] [place] [address] [address] [place] [address] Kelly Pierce MD Chronic lymphocytic leukemia, Crenshaw stage II (HCC) (Primary Dx); Need for influenza vaccination 09/11/2024 7:00 AM OYSTER BUYER Lab [facility] [address] [phone] Chronic lymphocytic leukemia, Crenshaw stage II (HCC) [...] Cancer (CMS/HCC) (HCC) CLL (chronic lymphocytic leukemia) ([facility]) 01/2019 Family History Medical History Relation [...] on file Legal Sex Male 1:27 AM OYSTER BUYER Gender Identity Not on file Sexual Orientation Not on file 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 Not on file Not on file Obstetrics History Last Filed Vital Signs Vital Sign Reading Time Taken Comments Blood Pressure 125/76 09/11/2024 8:08 AM OYSTER BUYER Pulse 74 09/11/2024 8:08 AM OYSTER BUYER Temperature 36.6 C (97.8 F) 09/11/2024 8:08 AM OYSTER BUYER Respiratory Rate 18 09/11/2024 8:08 AM OYSTER BUYER Oxygen Saturation 96% 09/11/2024 8:08 AM OYSTER BUYER Inhaled Oxygen Concentration - - Weight 139.3 kg (307 lb 3.2 oz) 09/11/2024 8:08 AM OYSTER BUYER Height 188 cm (6' 2 ) 09/03/2023 8:13 AM OYSTER BUYER Body Mass Index 39.44 09/03/2023 8:13 AM OYSTER BUYER Plan of Treatment Health Maintenance Due Date [...] Diagnosis Comments EGFR Routine 09/11/2024 8:10 AM OYSTER BUYER Chronic lymphocytic leukemia, Crenshaw stage II (HCC) DIFFERENTIAL AUTO Routine 09/11/2024 8:1 0 AM OYSTER BUYER Chronic lymphocytic leukemia, Crenshaw stage II (HCC) CBC WITH AUTO DIFFERENTIAL Routine 09/11/2024 8:10 AM OYSTER BUYER Chronic lymphocytic leukemia, Crenshaw stage II (HCC) COMPREHENSIVE METABOLIC PANEL Routine 09/11/2024 8:10 AM OYSTER BUYER Chronic lymphocytic leukemia, Crenshaw stage II (HCC) LACTATE DEHYDROGENASE Routine 09/11/2024 8:10 AM OYSTER BUYER Chronic lymphocytic leukemia, Crenshaw stage II (HCC) PSA SCREEN Routine 05/17/2023 9:27 AM CDT Routine general medical examination at a [facility] facility HEPATITIS C RNA, QUANTITATIVE, PCR Routine 10/05/2022 8:24 AM OYSTER BUYER Chronic lymphocytic leukemia, Crenshaw stage II (HCC) COLONOSCOPY 12/03/2020 1:43 PM OYSTER BUYER from Last 3 Months or Most Recently Relevant to Health Maintenance Results * eGFR (09/11/2024 8:10 AM OYSTER BUYER) eGFR 89 >=60 mL/min/1. 73 m2 Comment: [...] last reviewed 2021. Blood 09/11/2024 8:10 AM OYSTER BUYER 09/11/2024 8:20 AM OYSTER BUYER us Analilia Bahena ANIMAL ATTENDANT LAB BLOOD ORDERABLES Final Result [facility] [place] [address] * Differential, auto (09/11/2024 8:10 AM OYSTER BUYER) Neutrophil abs 2.5 1.5 - 6.5 K/cumm Comment:Testing performed by : [facility], [address] [place] [phone] Lymphocyte abs 1.5 0.8 - 3.3 K/cumm CERNER [facility] Comment:Testing performed by : [facility], [address] [place] [phone] Monocyte abs 0.8 0.2 - 0.8 K/cumm CERNER BJ Comment:Testing performed by : [facility], [address] [place] [phone] Eosinophil abs 0.2 0.0 - 0.5 K/cumm CERNER BJ Comment:Testing performed by : [facility], [address] [place] [phone] Basophil abs 0.0 0.0 - 0.1 K/cumm CERNER BJ Comment:Testing performed by : [facility], [address] [place] [phone] Neutrophil pct 48.8 % CERNER BJ Comment: Interpretive Data Percent cell count reference ranges are not reported, since discordance with absolute values may lead to misinterpretation of CBC data. Current Interpretive Data was last revised on 2018. Testing performed by: [facility], [address] [place] [phone] Lymphocyte pct 30.7 % CERNER [facility]J Comment: Interpretive Data Percent cell count reference ranges are not reported, since discordance with absolute values may lead to misinterpretation of CBC data. Current Interpretive Data was last revised on 2018. Testing performed by: [facility], [address] [place] [phone] Monocyte pct 15.0 % ARABELLA PARTIDA Comment: Interpretive Data Percent cell count reference ranges are not reported, since discordance with absolute values may lead to misinterpretation of CBC data. Current Interpretive Data was last revised on 2018. Testing performed by: [facility], [address] [place] [phone] Eosinophil pct 4.9 % ARABELLA PARTIDA Comment: Interpretive Data Percent cell count reference ranges are not reported, since discordance with absolute values may lead to misinterpretation of CBC data. Current Interpretive Data was last revised on 2018. Testing performed by: [facility], [address] [place] [phone] Basophil pct 0.6 % ARABELLA PARTIDA Comment: Interpretive Data Percent cell count reference ranges are not reported, since discordance with absolute values may lead to misinterpretation of CBC data. Current Interpretive Data was last revised on 2018. Testing performed by: [facility], [address] [place] [phone] Blood 09/11/2024 8:10 AM OYSTER BUYER 09/11/2024 8:16 AM OYSTER BUYER Analilia Bahena ANIMAL ATTENDANT LAB BLOOD ORDERABLES Final Result [facility] PARTIDA [facility] Department [place] [address] * CBC with auto differential (09/11/2024 8:10 AM OYSTER BUYER) WBC 5.0 3.8 - 9.9 K/cumm Comment:Testing performed by : [facility], [address] [place] [phone] Hgb 14.4 13.0 - 17.5 g/dL ARABELLA PARTIDA Comment:Testing performed by : [facility], [address] [place], [place] [phone] Hct 44.4 38.9 - 50.3 % CERNER BJ Comment:Testing performed by : [facility], [address] [place], [place] [phone] Plt 161 150 - 400 K/cumm CERNER BJ Comment:Testing performed by : [facility], [address] [place], [place] [phone] MPV 8.9 6.8 - 10.4 fL CERNER BJ Comment:Testing performed by : [facility], [address] [place], [place] [phone] RBC 4.60 4.30 - 5.80 M/cumm CERNER BJ Comment:Testing performed by : [facility], [address] [place], [place] [phone] MCV 96.4 81.3 - 96.4 fL CERNER BJ Comment:Testing performed by : [facility], [address] [place], [place] [phone] MCH 31.2 27.1 - 33.3 pg CERNER BJ Comment:Testing performed by : [facility], [address] [place], [place] [phone] MCHC 32.4 32.3 - 35.7 g/dL CERNER BJ Comment:Testing performed by : [facility], [address] [place], [place] [phone] RDW CV 14.7 11.1 - 14.9 % CERNER BJ Comment:Testing performed by : [facility], [address] [place], [place] [phone] NRBC abs 0.00 0.00 - 0.01 K/cumm CERNER BJ Comment:Testing performed by : [facility], [address] [place], [place] [phone] Blood 09/11/2024 8:10 AM OYSTER BUYER 09/11/2024 8:16 AM OYSTER BUYER us Analilia Bahena ANIMAL ATTENDANT LAB BLOOD ORDERABLES Final Result Performing Organization Address City/[facility]/ZIP Co de Phone Number [facility] Cindy [facility] [place] [address] * Lactate dehydrogenase (LD) (09/11/2024 8:10 AM OYSTER BUYER) [facility] Lactate dehydrogenase (LDH) 166 100 - 250 Units/L Blood 09/11/2024 8:10 AM OYSTER BUYER 09/11/2024 8:20 AM OYSTER BUYER Analiliaalessia Yepez Bahena ANIMAL ATTENDANT LAB BLOOD ORDERABLES Final Result Performing Organization Address [facility]/RUST de Phone Number [facility] Department [place] [address] * Comprehensive metabolic panel (09/11/2024 8:10 AM OYSTER BUYER) [facility] Sodium 141 135 - 145 mmol/L Potassium, pl 4.4 3.3 - 4.9 mmol/L [facility] Chloride 108 97 - 110 mmol/L [facility] CO2 30 22 - 32 mmol/L [facility] Anion gap 3 2 - 15 mmol/L [facility] BUN 15 6 - 25 mg/dL [facility] Creatinine 0.99 0.80 - 1.30 mg/dL [facility] Glucose 106 70 - 199 mg/dL [facility] Comment: Interpretive Data Fasting glucose >/= 126 [...] 2022. Calcium 9.2 8.5 - 10.3 mg/dL [facility] Bilirubin, total 0.6 0.1 - 1.2 mg/dL [facility] Protein, pl 6.8 6.5 - 8.5 g/dL [facility] Albumin 4.2 3.5 - 5.0 g/dL [facility] Alk phos 98 40 - 130 Units/L [facility] ALT 25 7 - 55 Units/L [facility] AST 22 10 - 50 Units/L [facility] Blood 09/11/2024 8:10 AM OYSTER BUYER 09/11/2024 8:20 AM OYSTER BUYER Analilia Bahena NP LAB BLOOD ORDERABLES Final Result Performing Organization Address [facility] Co de Phone Number [facility] [place] [place] [address] * PSA screen (05/17/2023 9:27 AM CDT) PSA-Total 0.53 <=3.90 ng/mL [facility] Comment: Interpretive Data AGE SEX REFERENCE INTERVAL [...] ORDERABLES Final Re sult Performing Organization Address City/[facility] Co de Phone Number [facility] [place] [place] [address] * Hepatitis C (HCV) RNA PCR, quantitative (10/05/2022 8:24 AM OYSTER BUYER) HCV RNA result Not Detected [facility] Comment: The quantifiable range of this assay is 15 IU/mL to 100,000,000 IU/mL (1.18 log IU/mL to 8.00 log IU/mL). Testing was performed by the [facility] 6800 HCV Test ([employer] Testing performed at [facility] Current Interpretive Data was last revised on 2021 Blood 10/05/2022 8:24 AM OYSTER BUYER 10/05/2022 9:15 AM OYSTER BUYER us Lynda Slade NP LAB MICROBIOLOGY - GENERAL ORDERABLES Final Result [facility] Department [place] [address] * COLONOSCOPY (12/03/2020 1:43 PM OYSTER BUYER) Anatomical Region Laterality Modality Other Narrative Procedure Note Laura Sam MD - 12/03/2020 1:43 PM C[facility] Patient Name: Layo Ponce Procedure Date: 12/03/2020 1:43 PM Date of : 1970 Admit Type: Outpatient Age: 50 Gender: Male Attending MD: Laura Sam M.D. Room: [facility] ENDOSCOPY ROOM 8 Note Status: Finalized [...] The scope was passed under direct vision.The [id number] endoscope was introduced through the anus [...] On: 12/03/2020 1:43 PM Recognized by the [employer] for promoting quality in endoscopy Laura Sam MD ENDOSCOPY PROCEDURE S Final Result from Last 3 Months or Most Recently Relevant to Health Maintenance Insurance [facility] HMO/PPO Address: [facility] [address] [place] [address] [facility] H[facility]/PPO Address: [address] [place] [id number] [facility] HMO/PPO Address: [address] [place] [address] [facility] HMO/PPO Address: [address] [place] [address] [facility] CHO[facility] HMO/PPO Address: [place] [address] [employer] [address] [place] [address] Advance Directives For more information, please contact: [phone] * Full Code (Latest Code Status on File) Date Activated Date Inactivated Comments 12/03/2020 1:38 PM 12/03/2020 7:03 PM Care Teams Analytical Strategist Relationship Specialty Start Date End Date Renaldo Erazo MD [address] [address] PCP - General Internal Medicine 01/21/19
--- OUTSIDE RECORDS SUMMARY | 2024-11-06 18:19 | XMS_ITS | Referral Summary ---
Author Organization [facility] Address [address] [place] [phone] Care Team Providers Care Truck Spotter Name Role Phone Renaldo Erazo MD Primary Care Provider Encounters Date Type Department Care Team Description 11/05/2024 [facility] [address] [facility] [address] [place] [address] Renaldo Erazo MD Hemorrhoids 09/11/2024 8:15 AM MEDICAL TRANSCRIPTION EDITOR Lab [facility] - Lab Collection [address] [place] [id number] Chronic lymphocytic leukemia, Crenshaw stage II (HCC) 09/11/2024 8:00 AM MEDICAL TRANSCRIPTION EDITOR Office Visit [facility] On[facility] [address] [place] [phone] Kelly Pierce MD Chronic lymphocytic leukemia, Crenshaw stage II (HCC) (Primary Dx); Need for influenza vaccination 09/11/2024 7:00 AM MEDICAL TRANSCRIPTION EDITOR Lab [facility] Oncology Lab [address] [place] [phone] Chronic lymphocytic leukemia, Crenshaw stage II (HCC) [...] (11/10/2020): Added automatically from request for surgery [id number] Immunizations Name Administration Dates Next Due Influenza, [...] on file Legal Sex Male 1:27 AM MEDICAL TRANSCRIPTION EDITOR Gender Identity Not on file Sexual Orientation Not on file 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 Not on file Last Filed Vital Signs Vital Sign Reading Time Taken Comments Blood Pressure 125/76 09/11/2024 8:08 AM MEDICAL TRANSCRIPTION EDITOR Pulse 74 09/11/2024 8:08 AM MEDICAL TRANSCRIPTION EDITOR Temperature 36.6 C (97.8 F) 09/11/2024 8:08 AM MEDICAL TRANSCRIPTION EDITOR Respiratory Rate 18 09/11/2024 8:08 AM MEDICAL TRANSCRIPTION EDITOR Oxygen Saturation 96% 09/11/2024 8:08 AM MEDICAL TRANSCRIPTION EDITOR Inhaled Oxygen Concentration - - Weight 139.3 kg (307 lb 3.2 oz) 09/11/2024 8:08 AM MEDICAL TRANSCRIPTION EDITOR Height 188 cm (6' 2 ) 09/03/2023 8:13 AM MEDICAL TRANSCRIPTION EDITOR Body Mass Index 39.44 09/03/2023 8:13 AM MEDICAL TRANSCRIPTION EDITOR Plan of Treatment Not on file Procedures Procedure Name Priority Date/Time Associated Diagnosis Comments EGFR Routine 09/11/2024 8:10 AM MEDICAL TRANSCRIPTION EDITOR Chronic lymphocytic leukemia, Crenshaw stage II (HCC) DIFFERENTIAL AUTO Routine 09/11/2024 8:1 0 AM MEDICAL TRANSCRIPTION EDITOR Chronic lymphocytic leukemia, Crenshaw stage II (HCC) CBC WITH AUTO DIFFERENTIAL Routine 09/11/2024 8:10 AM MEDICAL TRANSCRIPTION EDITOR Chronic lymphocytic leukemia, Crenshaw stage II (HCC) COMPREHENSIVE METABOLIC PANEL Routine 09/11/2024 8:10 AM MEDICAL TRANSCRIPTION EDITOR Chronic lymphocytic leukemia, Crenshaw stage II (HCC) LACTATE DEHYDROGENASE Routine 09/11/2024 8:10 AM MEDICAL TRANSCRIPTION EDITOR Chronic lymphocytic leukemia, Crenshaw stage II (HCC) PSA SCREEN Routine 05/17/2023 9:27 AM CDT Routine general medical examination at a [facility] HEPATITIS C RNA, QUANTITATIVE, PCR Routine 10/05/2022 8:24 AM MEDICAL TRANSCRIPTION EDITOR Chronic lymphocytic leukemia, Crenshaw stage II (HCC) COLONOSCOPY 12/03/2020 1:43 PM MEDICAL TRANSCRIPTION EDITOR from Last 3 Months or Most Recently Relevant to Health Maintenance Results * eGFR (09/11/2024 8:10 AM MEDICAL TRANSCRIPTION EDITOR) eGFR 89 >=60 mL/min/1. 73 m2 Comment: [...] last reviewed 2021. Blood 09/11/2024 8:10 AM MEDICAL TRANSCRIPTION EDITOR 09/11/2024 8:20 AM MEDICAL TRANSCRIPTION EDITOR us Analilia aBhena SENIOR LOAN PROCESSOR LAB BLOOD ORDERABLES Final Result [facility] [place] [address] * Differential, auto (09/11/2024 8:10 AM MEDICAL TRANSCRIPTION EDITOR) Neutrophil abs 2.5 1.5 - 6.5 K/cumm Comment:Testing performed by : [facility], [address] [place] [phone] Lymphocyte abs 1.5 0.8 - 3.3 K/cumm [facility] Comment:Testing performed by : [facility], [address] [place] [phone] Monocyte abs 0.8 0.2 - 0.8 K/cumm [facility] Comment:Testing performed by : [facility], [address] [place] [phone] Eosinophil abs 0.2 0.0 - 0.5 K/cumm [facility] Comment:Testing performed by : [facility], [address] [place] [phone] Basophil abs 0.0 0.0 - 0.1 K/cumm [facility] Comment:Testing performed by : [facility], [address] [place] [phone] Neutrophil pct 48.8 % [facility] Comment: Interpretive Data Percent cell count reference ranges are not reported, since discordance with absolute values may lead to misinterpretation of CBC data. Current Interpretive Data was last revised on 2018. Testing performed by: [facility], [address] [place] [phone] Lymphocyte pct 30.7 % [facility] Comment: Interpretive Data Percent cell count reference ranges are not reported, since discordance with absolute values may lead to misinterpretation of CBC data. Current Interpretive Data was last revised on 2018. Testing performed by: [facility], [address] [place] [phone] Monocyte pct 15.0 % [facility] Comment: Interpretive Data Percent cell count reference ranges are not reported, since discordance with absolute values may lead to misinterpretation of CBC data. Current Interpretive Data was last revised on 2018. Testing performed by: [facility], [address] [place] [phone] Eosinophil pct 4.9 % [facility] Comment: Interpretive Data Percent cell count reference ranges are not reported, since discordance with absolute values may lead to misinterpretation of CBC data. Current Interpretive Data was last revised on 2018. Testing performed by: [facility], [address] [place] [phone] Basophil pct 0.6 % [facility] Comment: Interpretive Data Percent cell count reference ranges are not reported, since discordance with absolute values may lead to misinterpretation of CBC data. Current Interpretive Data was last revised on 2018. Testing performed by: [facility], [address] [place] [phone] Blood 09/11/2024 8:10 AM MEDICAL TRANSCRIPTION EDITOR 09/11/2024 8:16 AM MEDICAL TRANSCRIPTION EDITOR us Analilia Bahena SENIOR LOAN PROCESSOR LAB BLOOD ORDERABLES Final Result [facility] [place] [address] * CBC with auto differential (09/11/2024 8:10 AM MEDICAL TRANSCRIPTION EDITOR) Pathologist [facility] WBC 5.0 3.8 - 9.9 K/cumm Comment:Testing performed by : [facility], [address] [place] [address] Hgb 14.4 13.0 - 17.5 g/dL CERNER [facility] Comment:Testing performed by : [facility], [address] [place] [address] Hct 44.4 38.9 - 50.3 % [facility]ER [facility]J Comment:Testing performed by : [facility], [address] [place] [address] Plt 161 150 - 400 K/cumm [facility]ER [facility]J Comment:Testing performed by : [facility], [address] [place] [address] MPV 8.9 6.8 - 10.4 fL CERNER BJ Comment:Testing performed by : [facility], [address] [place] [address] RBC 4.60 4.30 - 5.80 M/cumm C[facility]ER [facility]J Comment:Testing performed by : [facility], [address] [place] [address] MCV 96.4 81.3 - 96.4 fL [facility]ER [facility]J Comment:Testing performed by : [facility], [address] [place] [address] MCH 31.2 27.1 - 33.3 pg [facility]ER BJ Comment:Testing performed by : [facility], [address] [place] [address] MCHC 32.4 32.3 - 35.7 g/dL [facility]ER [facility]J Comment:Testing performed by : [facility], [address] [place] [address] RDW CV 14.7 11.1 - 14.9 % CERNER BJ Comment:Testing performed by : [facility], [address] [place] [address] NRBC abs 0.00 0.00 - 0.01 K/cumm [facility] Comment:Testing performed by : [facility], [address] [place] [phone] Blood 09/11/2024 8:10 AM MEDICAL TRANSCRIPTION EDITOR 09/11/2024 8:16 AM MEDICAL TRANSCRIPTION EDITOR Analilia Bahena SENIOR LOAN PROCESSOR LAB BLOOD ORDERABLES Final Result Performing Organization Address [facility] Co de Phone Number [facility] [place] [address] * Lactate dehydrogenase (LD) (09/11/2024 8:10 AM MEDICAL TRANSCRIPTION EDITOR) Pathologist [facility] Lactate dehydrogenase (LDH) 166 100 - 250 Units/L Blood 09/11/2024 8:10 AM MEDICAL TRANSCRIPTION EDITOR 09/11/2024 8:20 AM MEDICAL TRANSCRIPTION EDITOR Analilia Bahena SENIOR LOAN PROCESSOR LAB BLOOD ORDERABLES Final Result Performing Organization Address [facility] de Phone Number [facility] [place] [address] * Comprehensive metabolic panel (09/11/2024 8:10 AM MEDICAL TRANSCRIPTION EDITOR) Pathologist [facility] Sodium 141 135 - 145 mmol/L Potassium, [...] [facility] Blood 09/11/2024 8:10 AM MEDICAL TRANSCRIPTION EDITOR 09/11/2024 8:20 AM MEDICAL TRANSCRIPTION EDITOR Analilia Bahena NP LAB BLOOD ORDERABLES Final Result Performing Organization Address [facility] Co de Phone Number [facility] [place] [address] * PSA screen (05/17/2023 9:27 AM CDT) [...] ORDERABLES Final Re sult Performing Organization Address [facility] Co de Phone Number CERNER [facility] [place] [address] * Hepatitis C (HCV) RNA PCR, quantitative (10/05/2022 8:24 AM MEDICAL TRANSCRIPTION EDITOR) [facility] HCV RNA result Not Detected [facility] Comment: The quantifiable range of this assay is 15 IU/mL to 100,000,000 IU/mL (1.18 log IU/mL to 8.00 log IU/mL). Testing was performed by the HELEN 6800 HCV Test ([employer] Testing performed at [facility] Current Interpretive Data was last revised on 2021 Blood 10/05/2022 8:24 AM MEDICAL TRANSCRIPTION EDITOR 10/05/2022 9:15 AM MEDICAL TRANSCRIPTION EDITOR us Lynda Slade NP LAB MICROBIOLOGY - GENERAL ORDERABLES Final Result [facility] [place] [address] * COLONOSCOPY (12/03/2020 1:43 PM MEDICAL TRANSCRIPTION EDITOR) Anatomical Region Laterality Modality Other Narrative Procedure Note Laura Sam MD - 12/03/2020 1:43 PM CST [facility] Patient Name: Layo Ponce Procedure Date: 12/03/2020 1:43 PM Date of : 1970 Admit Type: Outpatient Age: 50 Gender: Male Attending MD: Laura Sam M.D. Room: [facility] ENDOSCOPY ROOM 8 Note Status: Finalized Procedure: [...] The scope was passed under direct vision.The [id number] endoscope was introduced through the anus [...] On: 12/03/2020 1:43 PM Recognized by the [employer] for promoting quality in endoscopy Laura Sam MD ENDOSCOPY PROCEDURE S Final Result from Last 3 Months or Most Recently Relevant to Health Maintenance Insurance [facility] CHOICE PLUS [facility] HMO/PPO Address: [address] [address] [place] [address] CHOICE PLUS [facility] HMO/PPO Address: [place] [address] CHOICE PLUS [facility]/PPO Address: [place] [address] CHOICE PLUS [facility] HMO/PPO Address: [address] [place] [address] CHOICE PLUS [facility] HMO/PPO Address: [address] [place] [address] WORKERS COMPENSATION GENERIC [address] [place] [address] Advance Directives For more information, please contact: [phone] * Full Code (Latest Code Status on File) Date Activated Date Inactivated Comments 12/03/2020 1:38 PM 12/03/2020 7:03 PM Care Teams Truck Spotter Relationship Specialty Start Date End Date Renaldo Erazo MD [address] [facility] [address] [place] [address] PCP - General Internal Medicine 01/21/19
--- OUTSIDE RECORDS SUMMARY | 2024-11-06 18:19 | XMS_ITS | Encounter Summary ---
Author Organization [facility] Address [address] [place] [address] Care Team Providers Care 3Rd Pressman Name Role Phone Renaldo Erazo MD Primary Care Provider [phone] Reason for Visit * Reason Onset Date Comments Hemorrhoids 11/05/2024 Encounter Details Date Type Department Care Team (Late st Contact Info) Description 11/05/2024 [facility] [address] [facility] [address] [place] [id number] Renaldo Erazo MD [address] [facility] [address] [place] [address] Hemorrhoids Social History Tobacco Use [...] on file Legal Sex Male 1:27 AM COSMETOLOGY EDUCATOR Gender Identity Not on file Sexual Orientation Not on file 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 ETOLOGY EDUCATOR * Telephone Encounter - Renaldo Erazo MD - 11/05/2024 10:19 AM CST Analpram tends to be very soothing. ALso using TUCKS flushable wipes can help Ibuprofen can be helpful for inflammation ETOLOGY EDUCATOR * Telephone Encounter - Marissa Anguiano - 11/05/2024 9:44 AM COSMETOLOGY EDUCATOR Pt notified and voiced understanding. Asking what you would recommend for taking for the pain? ETOLOGY EDUCATOR * Telephone Encounter - Renaldo Erazo MD - 11/05/2024 9:23 AM CST Sure Analpram apply bid #[id number] ETOLOGY EDUCATOR * Telephone Encounter - Marissa Anguiano - 11/05/2024 9:12 AM COSMETOLOGY EDUCATOR Pt calling in c/o problems with hemorrhoids. [...] anything that can be done until then. ETOLOGY EDUCATOR documented in this encounter Plan of Treatment Not on file documented as of this encounter Visit Diagnoses Not on filedocumented in this encounter Care Teams 3Rd Pressman Relationship Specialty Start Date End Date Renaldo Erazo MD [address] [address] PCP - General Internal Medicine 01/21/19 documented as of this encounter
--- OUTSIDE RECORDS SUMMARY | 2024-11-06 18:19 | XMS_ITS ---
Author Organization [facility] Address [address] [place] [phone] Care Team Providers Care Eligibility Analyst Name Role Phone Renaldo Erazo MD Primary Care Provider [phone] Active Problems Problem Noted Date Diagnosed Date [...] treatments are documented for this patient in [facility]. Treatments may have been administered in another system. Lifetime Dose Tracking * Chemical Lifetime Dose Automatic Entry Manual Entr y DLP 15,114 mGycm 15,114 mGycm 0 mGycm Resolved Problems Problem Noted Date Diagnosed Date Resolved Date Immunocompromised 08/03/2022 05/14/2024 Encounter for screening colonoscopy 11/10/2020 05/14/2024 Overview (11/10/2020): Added automatically from request for surgery [id number]
--- OUTSIDE RECORDS SUMMARY | 2024-11-06 18:19 | XMS_ITS | Patient Health Summary ---
Author Organization [facility] [employer] Address [address] [place] [address] Care Team Providers Care Technical Developer Name Role Phone Renaldo Erazo MD Primary Care Provider [phone] Note from [facility],non-owned Affiliates and Associated Physician Practices is amultiple site organization consisting of ambulatory clinics and hospital sitesin [place], [place], [place] and [place]. This disclosure is being madepursuant to the Care Everywhere program and may not contain all information available regarding this patient. Last updated 18.[facility] [employer] Allergies No known active allergies Medications Be [...] 36.34 03/02/2019 2:34 PM CDT Care Teams Technical Developer Relationship Specialty Start Date End Date Renaldo Erazo MD PCP - General Internal Medicine 01/19/17
[2024-11-06 18:22] LABS: Alanine Aminotransferase 23 U/L (6-50); Albumin Level 4.2 g/dL (3.5-5.1); Alkaline Phosphatase 112 U/L (38-126); Anion Gap 11 mmol/L (4-12); Aspartate Amino Transferase 20 U/L (17-59); Bilirubin,Total 1.6 mg/dL (0.2-1.3); Blood Urea Nitrogen 18 mg/dL (9-20); CRP 5.2 mg/dL (<1.0); Calcium 9.1 mg/dL (8.4-10.2); Carbon Dioxide 23 mmol/L (22-30); Chloride 105 mmol/L (98-107); Estimated CRCL calculation 127 ml/min; Estimated Glomerular Filt Rate > 60; Glucose 103 mg/dL (65-110); Sodium 139 mmol/L (137-145)
[2024-11-06 18:24] LABS: White Blood Count 0.8 K/mm3 (4.5-10.0)
[2024-11-06] MEDS: SODIUM CHLORIDE 0.9% IV 1,000 ML 999 ML IV CONT (18:31)
[2024-11-06] MEDS: HYDROmorphone HCL INJ (*CRX) 1 MG/ML SYR 0.5 MG IV PUSH ×2 (18:32→20:44)
[2024-11-06 18:34] VITALS: BP 143/80; PULSE 91; RESP 18; O2SAT 100
--- NOTE | 2024-11-06 18:50 | ED_ITS ---
HPI - Skin/Abscess/Foreign Bdy General Chief complaint: Skin/Abscess/Foreign Body Stated complaint: rectal pain, hemorrhoids Time Seen by Provider: 11/06/24 17:58 Source: patient Mode of arrival: ambulatory Limitations: no limitations History of Present Illness HPI narrative: This is a 54-year-old male who presents to the ED for chief complaint of rectal pain x3 days. Patient describes severe pain while having bowel movements. Reports that it feels like there are multiple cuts there. States he feels like he is pooping glass. Denies rectal bleeding, nausea, vomiting, abdominal pain, fevers, chills. Endorses history of CLL with last treatment 18 months ago. States that he was told he is in remission. He follows with [facility] heme/[facility]c Related Data Allergies Allergy/AdvReac Type Severity Reaction Status Date / Time No Known Allergies Allergy Verified 11/06/24 17:55 Review of Systems 2 Review of Systems: All systems as dictated in HPI Exam 2 Narrative: GENERAL: Well-appearing, well-nourished, and in no acute distress. HEAD: Normocephalic, atraumatic. EYES: PERRLA and EOMI. ENT: Nares clear, no rhinorrhea or epistaxis. Mucous membranes moist. Oropharynx without tonsillar hypertrophy exudate or other lesions. NECK: Supple. No adenopathy or masses. CHEST: No respiratory distress. Clear to auscultation. No wheezes rales or rhonchi HEART: Regular rate and rhythm. No murmur heard. Normal peripheral pulses. ABDOMEN: Soft, nontender, nondistended, normal active bowel sounds. MSK: Normal range of motion. No edema. SKIN: Warm, dry, no rash. NEURO: Alert and oriented x4. No focal deficits. PSYCH: Normal mood and affect. Rectal exam done with female RN commercial technician present: There is a anal fissure at the posterior midline. No gross blood. No hemorrhoids detected. Guaiac stool test is negative. Course Vital Signs Vital signs: Vital Signs Temperature 97.6 F 11/06/24 15:36 Pulse Rate 107 H 11/06/24 15:36 Respiratory Rate 20 11/06/24 15:36 Blood Pressure 121/60 11/06/24 15:36 Pulse Oximetry 99 11/06/24 15:36 Oxygen Delivery Room Air 11/06/24 15:36 Temperature 97.6 F 02/06/25 15:36 Pulse Rate 97 11/06/24 20:56 Respiratory Rate 18 11/06/24 20:56 Blood Pressure 150/80 H 11/06/24 20:56 Pulse Oximetry 100 11/06/24 20:56 Oxygen Delivery Room Air 11/06/24 15:36 MDM - Skin/Abscess/Foreign Bdy MDM Narrative Medical decision making narrative: This is a 54-year-old male who presents to the ED for chief complaint of rectal pain over the past several days. Vitals are normal. On exam he has a anal fissure to the posterior midline. Negative bedside guaiac. Lab work and imaging were started initially for possible perirectal abscess. Lab work is coming back remarkable for pancytopenia with a white count of 0.8, hemoglobin of 11.7 [place] [address]. This is an acute pancytopenia, was able to review his labs on his phone from my chart. Last CBC in August 2024 shows a white count of 5, hemoglobin of 14, platelet count of 161. CT abdomen pelvis with IV contrast: IMPRESSION: No perirectal abscess is appreciated on cross-sectional imaging for which direct visualization is recommended. Scattered mural thickening and edema within the colon. Irregular focus of decreased attenuation within segment 2 of the liver for which nonemergent follow-up with MRI examination, with liver mass protocol. Was able to get in touch with heme Onc at [facility] and spoke with Dr. Lr. He is recommending transfer for the above findings of the pancytopenia which appears to be acute. He has concern for possible transformation of the patient's CLL. I discussed the need for transfer with the patient. He is understanding and agreeable with this plan. He will be transferred stable condition to [facility] for evaluation of these hematologic abnormalities. Lab Data 11/06/24 17:57 11/06/24 18:08 Labs: Lab Results 11/06/24 11/06/24 11/06/24 Range/Units 17:57 18:08 20:08 WBC 0.8 L* (4.5-10.0) K/mm3 RBC 3.70 L (4.6-6.20) M/mm3 Hgb 11.7 L (14.0-18.0) g/dL Hct 35.0 L (42.0-52.0) % MCV 94.6 (80-100) fl MCH 31.6 (26-34) pg MCHC 33.4 (32-36) g/dl RDW 13.2 (11.5-14.5) % Plt Count 31 L (150-375) k/mm3 MPV 9.3 (7.4-10.4) fl Immature Gran % (Auto) 1.2 H (0-0.5) % Neut % (Auto) 11.0 L (45.5-73.1) % Lymph % (Auto) 81.7 H (18.3-44.2) % [place] % (Auto) 3.7 (2.6-8.5) % Eos % (Auto) 2.4 (0-4.4) % Baso % (Auto) 0.0 L (0.2-1.2) % Lymph # (Auto) 0.67 L (0.9-3.2) K/mm3 [place] # (Auto) 0.0 L (0.1-0.6) K/mm3 Eos # (Auto) 0.0 (0-0.3) K/mm3 Baso # (Auto) 0.0 (0.0-0.1) K/mm3 Abs Immat Gran (auto) 0.01 (0.00-0.031) K/mm3 Absolute Neuts (auto) 0.1 L (1.3-6.7) K/mm3 Absolute Nucleated RBC 0.000 (0.0-0.012) K/mm3 Nucleated RBC % 0.0 (0.0-0.2) % % Immature Plt Fraction 2.4 (0.9-11.2) % Haptoglobin Pending PT 13.8 (11.1-14.7) Seconds INR 1.0 APTT 32.6 (22.3-36.8) Seconds Fibrinogen 473 (215-510) mg/dl Sodium 139 (137-145) mmol/L Potassium 4.0 (3.4-5.0) mmol/L Chloride 105 (98-107) mmol/L Carbon Dioxide 23 (22-30) mmol/L Anion Gap 11 (4-12) mmol/L BUN 18 (9-20) mg/dL Creatinine 0.83 1.10 (0.7-1.3) mg/dL Estim Creat Clear Calc 127 98 ml/min Estimated GFR > 60 > 60 (59 - ) Glucose 103 (65-110) mg/dL Uric Acid 5.2 (3.5-8.5) mg/dL Calcium 9.1 (8.4-10.2) mg/dL Total Bilirubin 1.6 H (0.2-1.3) mg/dL AST 20 (17-59) U/L ALT 23 (6-50) U/L Alkaline Phosphatase 112 (38-126) U/L Lactate Dehydrogenase 126 (120-246) U/L C-Reactive Protein 5.2 H (<1.0) mg/dL Total Protein 7.0 (6.3-8.2) g/dL Albumin 4.2 (3.5-5.1) g/dL Influenza A (RT-PCR) Negative (Negative) Influenza B (RT-PCR) Negative (Negative) RSV (RT-PCR) Negative (Negative) SARS-CoV-2 RNA (RT-PCR) Negative (Negative) Discharge Plan Discharge Clinical Impression: Pancytopenia, Acute anal fissure, Abnormal CT of the abdomen Patient Disposition: Acute Care Hospital Condition: Stable Instructions: Antibiotic Form Patient Language: Setswana Follow-up/Referrals: Kacey,Renaldo Rosales MD [Primary Care Provider] - Time of Disposition: 19:40
--- NOTE | 2024-11-06 19:13 | PC.NURSE ---
[facility] transfer center called w/ triage questions. Given updated pt info and VS. Will call back when bed has been assigned.
[2024-11-06] MEDS: CEFEPIME 1 GM/NS 50 ML 1 GM/50 ML BAG IVPB (20:02)
[2024-11-06 20:28] LABS: Lactate Dehydrogenase 126 U/L (120-246); Uric Acid 5.2 mg/dL (3.5-8.5)
[2024-11-06 20:31] LABS: Prothrombin Time 13.8 Seconds (11.1-14.7)
[2024-11-06 20:32] LABS: Fibrinogen 473 mg/dl (215-510); Partial Thromboplastin Time 32.6 Seconds (22.3-36.8)
[2024-11-06 20:38] VITALS: BP 150/80; PULSE 97; RESP 18; O2SAT 100
--- NOTE | 2024-11-06 20:54 | PC.NURSE ---
This RN spoke with Shazia AMBROSIO at [facility] at 2018 with report on pt.
[2024-11-06 20:55] LABS: Influenza A QL RT-PCR Negative (Negative); Influenza B QL RT-PCR Negative (Negative); RSV RNA, RT-PCR Negative (Negative); SARS-CoV-2 RNA PCR Negative (Negative)
[2024-11-06 20:56] VITALS: BP 150/80; PULSE 97; RESP 18; O2SAT 100
[2024-11-08 02:53] LABS: Haptoglobin 170 mg/dL (43-212)
== END 2024-11-06 20:58 | disposition short-term general hospital (02) ==
PROVIDERS: Emergency Medicine; Emergency Provider Physician Assistant; PCP Internal Medicine
DX: K60.0 Acute anal fissure (principal); D61.818 Other pancytopenia; R93.5 Abnormal findings on diagnostic imaging of other abdominal regions, including retroperitoneum; Z20.822 Contact with and (suspected) exposure to COVID-19; C91.11 Chronic lymphocytic leukemia of B-cell type in remission
CPT/HCPCS: 36415; 74177; 80053; 83010; 83615; 84550; 85025; 85055; 85384; 85610; 85730; 86140; 87637; 96361; 96365; 96375; 96376; 99285; J0692; J1171; J2004; J7030; Q9967